=== PATIENT | male | born 1950 | race Caucasian/White ===

== ENCOUNTER → 2022-09-03 | Outpatient (CLI) | payer OTHER ==
--- NOTE | 2022-09-03 13:55 | US ---
EXAMINATION TYPE: US scrotum with doppler. Grayscale and color Doppler Duplex imaging performed of t gilbert scrotum. DATE OF EXAM: 09/03/2022 COMPARISON: NONE CLINICAL HISTORY: N43.3 OTHER HYDROCELE. Right teste is larger than the right. Patient states he had a hx of hydrocele in right teste a long time ago from an infection, then went away with antibiotics. No injury. No redness. EXAM MEASUREMENTS: TESTICLES: Right Testicle: 4.4 x 3.5 x 2.7 cm Left Testicle: 4.9 x 3.5 x 2.3 cm EPIDIDYMIS HEAD: Right Epididymis: 1.2 x 1.0 x 1.0 cm Left Epididymis: 0.9 x 0.9 x 0.8 cm Grayscale, color Doppler, spectral Doppler imaging performed of the scrotum. Doppler performed to assess for testicular vascularity; bilateral color flow and waveforms are seen. Testicular echotexture is homogenous and symmetric. Presence of hydroceles: Large right with internal debris, small left Presence of varicoceles: Right Multiple left epididymal cysts with largest = 0.4 x 0.3 x 0.3 cm. Largest cystic lesions lateral to right teste with largest = 1.5 x 1.2 x 1.1 cm, could be epididymal cyst versus spermatocele bilateral ly. IMPRESSION: Right varicocele. Large right hydrocele greater than left. No evident testicular torsion.
== END | disposition home or self-care (01) ==
LOC: RADUSWWP 12:05
PROVIDERS: ATTEND Family Medicine
DX: I86.1 Scrotal varices (principal); N43.3 Hydrocele, unspecified
CPT/HCPCS: 76870; 93975

== ENCOUNTER → 2024-03-02 | Outpatient (CLI) | payer OTHER ==
--- NOTE | 2024-03-02 19:20 | US ---
EXAMINATION TYPE: US scrotum with doppler. Grayscale and color Doppler Duplex imaging performed of meena hunt scrotum. DATE OF EXAM: 03/02/2024 COMPARISON: 09/03/2022. CLINICAL INDICATION: Male, 74 years old with history of N50.82 SCROTAL PAIN; Right testicle pain x 3 months; fell EXAM MEASUREMENTS: TESTICLES: Right Testicle: 4.2 x 2.2 x 3.2 cm Left Testicle: 4.6 x 1.9 x 3.4 cm EPIDIDYMIS HEAD: Right Epididymis: 0.8 x 1.6 x 1.3 cm Left Epididymis: 1.5 x 1.1 x 2.4 cm Doppler performed to assess for testicular vascularity; good bilateral color flow and waveforms are s een. There is no evidence of testicular torsion. Presence of hydroceles: no Presence of varicoceles: bilateral Multiple cystic structures lateral to right testicle, largest = 1.3 x 1.0 x 1.5 cm Multiple subcentimeter left epididymal head cysts, calcifications seen lateral and inferior left test icle IMPRESSION: 1. No definitive evidence for acute process. Complex cystic area in the right testis near the epidid ymis not significantly changed from prior in 2021. There is been a reduction in the right hydrocele c ompared to prior. 2. Varicoceles present bilaterally.
== END | disposition home or self-care (01) ==
LOC: RADUSWWP 06:52
PROVIDERS: ATTEND Family Medicine
DX: I86.1 Scrotal varices (principal); N50.3 Cyst of epididymis; N43.3 Hydrocele, unspecified; W19.XXXA Unspecified fall, initial encounter
CPT/HCPCS: 76870; 93975

== ENCOUNTER → 2024-12-10 | Outpatient (CLI) | payer OTHER ==
--- NOTE | 2024-12-10 13:23 | NM ---
EXAMINATION TYPE: NM stress cardiolite complete DATE OF EXAM: 12/10/2024 COMPARISON: NONE CLINICAL INDICATION: Male, 74 years old with history of R00.1 BRADYCARDIA, TECHNIQUE: After the intravenous administration of 10.6 mCi Tc 99m Sestamibi - Cardiolite resting SP ECT images acquired 45 minutes post injection. At peak stress 26.1 mCi Tc 99m Sestamibi - Stress images obtained 14 minutes post injection The patient was stressed on the treadmill . Patient achieved greater than 85% predicted maximum heart rate FINDINGS: Stress defect is identified on the Polar map within the inferior lateral mid portion. This appears gr eater on the stress images than on the resting SPECT images. Polar map is less suggestive of this fin ding. Some stress-induced ischemic change however should be considered. Mild dyskinesia of the distal anterior wall is present. Ejection fraction is calculated to be 65 %. IMPRESSION: 1. SPECT imaging suggests small stress-induced ischemic change along the mid inferolateral wall. 2. Mild dyskinesia distal anterior wall. [facility], Workstation: [facility], 12/10/2024 1:21 PM
--- NOTE | 2024-12-10 13:39 | CA ---
Exercise Stress Test Report Name: Ramón Ren Exam Date: 12/10/2024 12:07 Exam Location: [facility] Ht (in): 71 Wt (lb): 202 BSA: 2.12 Ordering Phys: Omid Roland DO Referring Phys: Yakelin Owen PAC Technologist: Tio Carolina Age: 74 Gender: M : 1950 Procedure CPT: Indications: R00.1 bradycardia ICD-10 Codes: Patient History: DIABETES, PRIOR SMOKER Medications: METFORMIN, GLIVISEDE Meds past 24 hrs: Pretest Chest Pain: STRESS TEST Adrián Protocol Exercise Duration (min:sec): 05:[address] Depressions (mm): Angina Score: Marie Score: Resting HR (bpm): 96 Peak HR (bpm): 125 Resting BP (mmHg): 133 / 85 Peak BP (mmHg): 156 / 80 MPHR: 144 Target HR: 122 % MPHR: 87 METS: 7.1 Total Dose: Peak Dose: Atropine: Double Product: 83171 BP Response: Stress Termination: MAX EXERTION/TARGET HR Stress Symptoms: NO SYMPTOMS Stress Summary: The patient's target heart rate was achieved ECG ANALYSIS Resting ECG: Sinus rhythm. Right bundle branch block. No arrhythmias. Nonspecific ST-T abnormality. Stress ECG: No ECG evidence of ischemia with exercise. Ventricular premature contraction. CONCLUSIONS 1. Average exercise tolerance with nondiagnostic electrocardiographic response to exercise secondary to baseline EKG abnormality 2. Occasional PVCs and couplets 3. Nuclear images will be reported separately Dr. Pearl Sal MD (Electronically Signed) Final Date: 10 December 2024 13:38
== END | disposition home or self-care (01) ==
LOC: RADNMMAIN 12-03 10:22
PROVIDERS: ATTEND Family Medicine
DX: R00.1 Bradycardia, unspecified (principal); G24.9 Dystonia, unspecified
CPT/HCPCS: 93017; 78452; A9500